=== PATIENT | female | born 1975 | race Caucasian/White ===

== ENCOUNTER 2024-04-06 08:52 | Emergency (ER) | payer BC, SELFPAY ==
[2024-04-06 08:58] VITALS: BP 149/86
[2024-04-06 09:20] LABS: % Basophils 0.2 % (0-2); % Eosinophils 0.3 % (0-6); % Immature Granulocytes 0.2 % (0-0.5); % Monocytes 8.9 % (1.7-9.3); % Neutrophils 63.4 % (42.2-75.2); Absolute Lymphocytes 1.6 10^3/uL (1.2-3.4); Absolute Monocytes 0.5 10^3/uL (0.1-0.6); Absolute Neutrophils 3.6 10^3/uL (1.4-6.5); Hematocrit 36.6 % (37.0-47.0); Hemoglobin 11.8 g/dL (12.0-16.0); Mean Corp Hgb Conc. 32.2 g/dL (33.0-37.0); Mean Corpuscular Hgb 27.1 pg (27.0-31.0); Mean Corpuscular Volume 83.9 fL (81.0-99.0); Mean Platelet Volume 9.7 fL (7.4-10.4); Nucleated Red Blood Cells % 0 %; Platelet Count 237 10^3/uL (130-400); Red Blood Cell Count 4.36 10^6/uL (4.20-5.40); Red Cell Dist. Width 13.4 % (11.5-14.5); White Blood Cell Count 5.7 10^3/uL (4.8-10.8)
[2024-04-06 09:33] LABS: ALT (SGPT) 13 U/L (0-35); AST (SGOT) 20 U/L (14-36); Albumin 4.4 g/dl (3.5-5.0); Alkaline Phosphatase 46 U/L (38-126); Blood Urea Nitrogen 15 mg/dl (7-17); Calcium 9.1 mg/dl (8.4-10.2); Carbon Dioxide 28 mmol/L (22-30); Chloride 103 mmol/L (98-107); Glucose 82 mg/dl (70-99); Potassium 3.8 mmol/L (3.5-5.1); Sodium 140 mmol/L (135-145); Total Bilirubin 0.8 mg/dl (0.2-1.3); eGFR > 60.00
[2024-04-06 09:52] LABS: HCG, Serum Qualitative Screen Negative
--- NOTE | 2024-04-06 10:30 | ED.GENMED ---
History of Present Illness
General
Chief Complaint: Vaginal Bleeding
Source: patient
Exam Limitations: none
Time Seen by Provider: 04/06/24 09:35
History of Present Illness
History of Present Illness:
49yoF with a history of hypothyroidism, anxiety, and depression presenting for evaluation of vaginal bleeding. Patient did not have a menstrual period last month. She started bleeding on 03/21/2024 and has been bleeding since then. Bleeding has
been waxing and waning. There are days where she is passing large clots. She went through about 7 pads yesterday and 3-4 pads so far today. She also reports some mild pelvic cramping. She is otherwise asymptomatic and denies any shortness of
breath, fatigue, dizziness, syncope. Patient follows with the [facility] in [place] and has an endometrial biopsy scheduled in 1 week.
Past History
Past History
ED Past Medical History: CVA and Hypothyroidism
ED Past Surgical History: Brain, and Other
Social History
Tobacco: Non-smoker
Alcohol: Occasional
Drug: None
Personal:
Living: with family
Phy Exam
General Physical Exam
General Presentation: well appearing and no apparent distress
General age: appears stated age
General Skin: warm and dry
General Habitus: normal
General Mental: alert
ENT Exam
ENT Exam: normocephalic
Cardiovascular Exam
Cardiovascular Exam: regular rate/rhythm and no murmur
Pulmonary Exam
Pulmonary Exam: lungs clear, no respiratory distress, no rales, no crackles and no rhonchi
Gastrointestinal Exam
Gastrointestinal Exam: non tender, soft and non distended
Neurological Exam
Neurological Exam: alert
[place] Coma Scale
Eye Opening: Spontaneous
Verbal Response: Oriented
Motor Response: Obeys Commands
GCS Total Score: 15
Skin Exam
Skin Exam: normal color and warm/dry
Psychiatric Exam
Psychiatric Exam: normal mood/affect
Course
Orders/Labs/Results
Orders:
Orders
04/06/24 09:03
Test Result ONCE
04/06/24 09:07
Type+Screen Urgent
CMP [Comprehensive Metabolic Panel] Urgent
Complete Blood Count/With Diff Urgent
HCG, Serum Qualitative Screen Urgent
Comment: Notify provider if positive test present
TSH Reflex To Free T4 Urgent
Comment: ADD ON
04/06/24 10:29
Pelvis & Transvaginal US [US Pelvis W Transvag Combined] Urgent
Comment:
Reason For Exam: Vaginal bleeding
04/06/24 10:44
Add On- LAB Urgent
Tests Added?: tsh reflex to T4
Abnormal Lab Results
04/06/24
09:07
Hgb 11.8 L g/dL
(12.0-16.0)
Hct 36.6 L %
(37.0-47.0)
MCHC 32.2 L g/dL
(33.0-37.0)
04/06/24 09:07
04/06/24 09:07
Vital Signs
Initial and Last Documented VS:
Initial Vital Signs
Temp Pulse Resp BP Pulse Ox
98.1 F 99 16 149/86 100
04/06/24 08:58 04/06/24 08:58 04/06/24 08:58 04/06/24 08:58 04/06/24 08:58
Last Documented Vital Signs
Temp Pulse Resp BP Pulse Ox
98.1 F 68 16 137/91 99
04/06/24 08:58 04/06/24 10:45 04/06/24 10:45 04/06/24 12:49 04/06/24 12:49
MDM/Problems Addressed
Differential Diagnosis Includes:
49yoF here with vaginal bleeding since 03/21/24. Also c/o mild cramping. No dyspnea, fatigue, dizziness. Has an endometrial biopsy scheduled in 1 week. VSS. She is well appearing in no distress. Differential diagnosis includes but is not limited to:
dysfunctional uterine bleeding, perimenopause, thyroid dysfunction, endometrial hyperplasia, anemia
Initial ED plan: Labs obtained in triage. Mild anemia noted with a hemoglobin of 11.8. HCG negative. Will add TSH and pelvic ultrasound.
*Critical Care Note
Total Time (30-74mins, 75-104mins- exclusive of procedures): Not Applicable
Update Note
Update Note:
TSH within normal limits. Pelvic ultrasound shows an endometrial stripe of 6 mm which is normal for premenopausal patients. Imaging also shows a mass of the left ovary which is most likely a complex/hemorrhagic cyst. Radiology recommending repeat
ultrasound in 12 weeks. Patient provided with copy of the radiology report. She was advised to call her [employer] today for further instructions. Strict ED return precautions discussed. Patient expressed understanding and is agreement with plan.
She was discharged stable condition.
ED Attending Note
-
Portions of this chart may have been created with voice recognition software.� Occasional wrong word or��sound alike� substitutions may have occurred due to the inherent limitations of voice recognition software.
Discharge Plan
Departure
Patient Disposition: Home (Routine Discharge)
Date of Disposition: 04/06/24
Time of Disposition: 12:42
Patient with high blood pressure during this ER visit?: Yes
Discharge Problem:
Dysfunctional uterine bleeding
Instructions: Heavy Periods ED
Prescriptions:
No Action
pantoprazole [Protonix] 40 mg tablet,delayed release (DR/EC)
40 mg PO DAILY Qty: 30 0RF
Referrals:
Erica Fulton MD [Family Provider] -
Activity Restrictions/Additional Instructions:
Please call your OBGYN today for follow-up and further instructions. Return to the ER with any worsening symptoms, dizziness, passing out, or if you bleed through 2 pads/hour for >2 hours.
Interventions
Interventions:
*Risk Screen - Suicide Last Done: 04/06/24 08:58
*General Assessment Last Done: 04/06/24 08:58
*Neglect/Abuse Screening Last Done: 04/06/24 08:58
ED- Fall Risk Assessment Last Done: 04/06/24 12:00
*ED COVID-19 Vaccine History Last Done: 04/06/24 08:58
*Nursing Disposition Last Done: 04/06/24 13:04
ED-Female Genitourinary Assessment Last Done: 04/06/24 11:36
Discharge Date and Time
Discharge Date/Time: 04/06/24 13:05
Print Language: BELGIAN
[2024-04-06 10:39] VITALS: BP 136/86
[2024-04-06 10:40] VITALS: BMI 31.1
[2024-04-06 12:10] LABS: TSH Reflex To Free T4 3.51 uIU/ml (0.47-4.68)
[2024-04-06 12:49] VITALS: BP 137/91
== END 2024-04-06 13:05 | disposition home or self-care (01) ==
LOC: EMR 08:52
PROVIDERS: Emergency Medicine; EMERGENCY PHYSICIAN Emergency Medicine; FAMILY PHYSICIAN Internal Medicine
DX: N93.8 Other specified abnormal uterine and vaginal bleeding (principal); E03.9 Hypothyroidism, unspecified; F41.8 Other specified anxiety disorders; Z86.73 Personal history of transient ischemic attack (TIA), and cerebral infarction without residual deficits
CPT/HCPCS: 99284; 76830; 76856; 80053; 84443; 84703; 85025; 86850; 86900; 86901

== ENCOUNTER 2024-06-28 14:32 | Emergency (ER) | payer BC, SELFPAY ==
[2024-06-28 14:46] VITALS: BP 178/97
--- NOTE | 2024-06-28 15:18 | ED.GENMED ---
History of Present Illness
<Soledad Segura PA-C - Last Filed: 06/28/24 19:11>
General
Chief Complaint: Skin Surface Trauma
Source: patient
Exam Limitations: none
Time Seen by Provider: 06/28/24 15:10
History of Present Illness
History of Present Illness:
49yo [id number] female presenting for evaluation of a left index finger injury. Patient was painting a 70 pound ball of cement when she accidentally dropped onto her left index finger causing a laceration. She reports some throbbing pain
in the digit. Unknown last tetanus. No other complaints.
Past History
<Soledad Segura PA-C - Last Filed: 06/28/24 19:11>
Past History
ED Past Medical History: CVA and Hypothyroidism
ED Past Surgical History: Brain, and Other
Social History
Tobacco: Non-smoker
Alcohol: Occasional
Drug: None
Personal:
Living: with family
Phy Exam
<Soledad Segura PA-C - Last Filed: 06/28/24 19:11>
General Physical Exam
General Presentation: well appearing and no apparent distress
General age: appears stated age
General Skin: warm and dry
General Habitus: normal
General Mental: alert
ENT Exam
ENT Exam: normocephalic
Musculoskeletal Exam
Musculoskeletal Exam: other (L index finger: 2.5cm curved laceration present to the dorsum of the digit between the PIP and DIP joints. Mild venous oozing noted. No visualized tendon or FB. ROM of PIP, DIP, and MCP joint intact. Cap refill and
sensation intact at fingertip.)
Skin Exam
Skin Exam: normal color and warm/dry
Psychiatric Exam
Psychiatric Exam: normal mood/affect
Course
<Soledad Segura PA-C - Last Filed: 06/28/24 19:11>
Orders/Labs/Results
Orders:
Orders
06/28/24 15:16
Tetanus/Diphth/Acelpertussis [Adacel] 0.5 ml IM .ONCE ONE
CR Finger(s)/thumb Min 2 Vw Lt Urgent
Comment:
Reason For Exam: L index finger injury
Vital Signs
Initial and Last Documented VS:
Initial Vital Signs
Temp Pulse Resp BP Pulse Ox
98.7 F 105 18 178/97 100
06/28/24 14:46 06/28/24 14:46 06/28/24 14:46 06/28/24 14:46 06/28/24 14:46
Last Documented Vital Signs
Temp Pulse Resp BP Pulse Ox
98.7 F 105 18 136/99 100
06/28/24 14:46 06/28/24 14:46 06/28/24 14:46 06/28/24 16:40 06/28/24 14:46
<TORIE Hensley - Last Filed: 06/28/24 16:32>
Orders/Labs/Results
Orders:
Orders
06/28/24 15:16
Tetanus/Diphth/Acelpertussis [Adacel] 0.5 ml IM .ONCE ONE
CR Finger(s)/thumb Min 2 Vw Lt Urgent
Comment:
Reason For Exam: L index finger injury
Vital Signs
Initial and Last Documented VS:
Initial Vital Signs
Temp Pulse Resp BP Pulse Ox
98.7 F 105 18 178/97 100
06/28/24 14:46 06/28/24 14:46 06/28/24 14:46 06/28/24 14:46 06/28/24 14:46
Last Documented Vital Signs
Temp Pulse Resp BP Pulse Ox
98.7 F 105 18 136/99 100
06/28/24 14:46 06/28/24 14:46 06/28/24 14:46 06/28/24 16:40 06/28/24 14:46
Procedures
<TORIE Hensley - Last Filed: 06/28/24 16:32>
Laceration Closure
Left Dorsal Second Finger:
Status of Wound: clean
Size of Wound in cm: 3
Description of Wound Edges: ragged
Preparation: cleaned with saline
Anesthesia: 1% Lidocaine
Wound exploration: explored to base- no FB
Type of Closure: single layer closure
Skin Closure Material: 5-0 nylon
Number of sutures: 6
<Soledad Segura PA-C - Last Filed: 06/28/24 19:11>
MDM/Problems Addressed
Differential Diagnosis Includes:
49yoF here with a L index finger laceration/injury. 2.5cm curved laceration noted on exam. No clinical evidence of tendon injury. Digit is neurovascularly intact. Differential diagnosis includes: laceration, fracture
Laceration cleaned and repaired as above by PA student. I was at bedside throughout entire procedure. Tdap updated. X-rays obtained which are negative for fractures. Home wound care discussed. Patient advised to have sutures removed in 10-14 days
and was instructed to return to the ED with any signs of infection. Patient discharged in stable condition.
<Soledad Segura PA-C - Last Filed: 06/28/24 19:11>
*Critical Care Note
Total Time (30-74mins, 75-104mins- exclusive of procedures): Not Applicable
ED Attending Note
<Soledad Segura PA-C - Last Filed: 06/28/24 19:11>
-
Portions of this chart may have been created with voice recognition software.� Occasional wrong word or��sound alike� substitutions may have occurred due to the inherent limitations of voice recognition software.
Discharge Plan
Departure
Patient Disposition: Home (Routine Discharge)
Date of Disposition: 06/28/24
Time of Disposition: 16:29
Patient with high blood pressure during this ER visit?: Yes
Discharge Problem:
Laceration of left index finger
Instructions: Laceration Repair With Stitches (DC)
Prescriptions:
No Action
pantoprazole [Protonix] 40 mg tablet,delayed release (DR/EC)
40 mg PO DAILY Qty: 30 0RF
Referrals:
Erica Fulton MD [Family Provider] -
Activity Restrictions/Additional Instructions:
Keep wound clean and dry. Do not get wet for first 24 hours. Change dressings daily.
Sutures should be removed in 10-14 days. Return to the ER with any signs of infection (redness, warmth, drainage, fevers).
Interventions
Interventions:
*Risk Screen - Suicide Last Done: 06/28/24 14:46
*General Assessment Last Done: 06/28/24 14:46
*Neglect/Abuse Screening Last Done: 06/28/24 14:46
*ED- Fall Risk Assessment Last Done: 06/28/24 16:07
*ED COVID-19 Vaccine History Last Done: 06/28/24 16:07
*Nursing Disposition Last Done: 06/28/24 16:40
ED-Skin Assessment Last Done: 06/28/24 16:07
Discharge Date and Time
Discharge Date/Time: 06/28/24 16:40
Print Language: WOLOF
[2024-06-28] MEDS: ADACEL 0.5 ML IM (16:23)
[2024-06-28 16:40] VITALS: BP 136/99
== END 2024-06-28 16:40 | disposition home or self-care (01) ==
LOC: EMR 14:32
PROVIDERS: EMERGENCY PHYSICIAN Emergency Medicine; FAMILY PHYSICIAN Internal Medicine
DX: S61.211A Laceration without foreign body of left index finger without damage to nail, initial encounter (principal); X58.XXXA Exposure to other specified factors, initial encounter; Z23 Encounter for immunization; E03.9 Hypothyroidism, unspecified; Z86.73 Personal history of transient ischemic attack (TIA), and cerebral infarction without residual deficits
CPT/HCPCS: 99283; 12002; 90471; 73140; 90715